=== PATIENT | female | born 1985 | race Caucasian/White ===

== ENCOUNTER 2017-12-10 08:07 | Emergency (ER) | payer BC ==
[2017-12-10] MEDS ORDERED: Lidocaine 1% 10 ML MDV INJECT ONE (08:28)
--- NOTE | 2017-12-10 08:43 | EDM.PDOC ---
ED HPI GENERAL MEDICAL PROBLEM - General Chief Complaint: ENT Problem Stated Complaint: MOUTH INJURY Time Seen by Provider: 12/10/17 08:20 Source of Information: Reports: Patient, Family (spouse) History Limitations: Reports: No Limitations - History of Present Illness INITIAL COMMENTS - FREE TEXT/NARRATIVE: 32-year-old female presents the ED with an acute injury to the corner of her right lip. She states she tripped over some clothing last evening tripped and fell at home and struck the corner of the night table. This resulted in a laceration of the corner of her mouth involving primarily the lower lip. She denies any dental pain or injury. She denies any neck or head pain. Wound has stopped bleeding. However reinspection of the wound this morning it appears that she needs suture repair. When her last tetanus toxoid was updated. Onset: Today Onset Date: 12/10/17 Onset Time: 12:00 Duration: Hour(s): Location: Reports: Face (Right lower corner of the lip.) Quality: Reports: Ache Severity: Mild Improves with: Reports: None Worsens with: Reports: Eating Context: Reports: Trauma (Blunt force trauma when she tripped and fell and hit the corner of the th last night.). 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: Neurological History: Reports: Seizure Psychiatric History: Reports: Anxiety, Depression, Panic Attack Dermatologic History: Reports: Eczema Social & Family History - Tobacco Use Smoking Status *Q: Current Every Day Smoker Years of Tobacco use: 20 Packs/Tins Daily: 0.5 - Caffeine Use Caffeine Use: Reports: Coffee, Energy Drinks, Tea - Alcohol Use Days Per Week of Alcohol Use: 1 Number of Drinks Per Day: 3 Total Drinks Per Week: 3 - Recreational Drug Use Recreational Drug Use: No - Living Situation & Occupation Living situation: Reports: Occupation: Employed Review of Systems - Review of Systems Review Of Systems: See Below Constitutional: Reports: No Symptoms Eyes: Reports: No Symptoms Ears: Reports: No Symptoms Nose: Reports: No Symptoms Mouth/Throat: Reports: No Symptoms Respiratory: Reports: No Symptoms Cardiovascular: Reports: No Symptoms GI/Abdominal: Reports: No Symptoms Genitourinary: Reports: No Symptoms Musculoskeletal: Reports: No Symptoms Skin: Reports: No Symptoms Neurological: Reports: No Symptoms Psychiatric: Reports: No Symptoms ED EXAM, GENERAL - Physical Exam Exam: See Below Exam Limited By: No Limitations General Appearance: Alert, WD/WN, No Apparent Distress Eye Exam: Bilateral Eye: Normal Inspection Nose: Normal Inspection, Normal Mucosa, No Blood Throat/Mouth: Other (Has a 1.5 cm stellate laceration involving the lower aspect of her right lip at the corner of her mouth.) Head: Atraumatic ( His minimal involvement on the in tear of the left.), Normocephalic Neck: Normal Inspection, Supple, Non-Tender, Full Range of Motion. No: Lymphadenopathy (L), Lymphadenopathy (R) Respiratory/Chest: No Respiratory Distress, Lungs Clear, Normal Breath Sounds, No Accessory Muscle Use Cardiovascular: Normal Peripheral Pulses, Regular Rate, Rhythm, No Edema, No Gallop ED TRAUMA PROCEDURES - Laceration/Wound Repair Right Lower Mouth Lac/Wound Length In cm: 2.5 (2 lacerations involving the lower aspect of her right lateral lip involving the Start border.) Appearance: Subcutaneous, Stellate, Clean Anesthetic Type: Local Local Anesthesia - Lidocaine (Xylocaine): 1% Plain Local Anesthetic Volume: 2cc Skin Prep: Saline Suture Size: other # of Sutures: 6 Repaired With: Vicryl (5-0) Course - Vital Signs Last Recorded V/S: Last Vital Signs Temp 36.7 C 12/10/17 08:14 Pulse 70 12/10/17 08:14 Resp 20 12/10/17 08:14 BP 105/69 12/10/17 08:14 Pulse Ox 98 12/10/17 08:14 - Orders/Labs/Meds Meds: Medications Discontinued Medications Generic Name Dose Route Start Last Admin Trade Name Haja PRN Reason Stop Dose Admin Lidocaine HCl 10 ml 12/10/17 08:28 12/10/17 08:50 Xylocaine 1% INJECT 12/10/17 08:29 10 ml ONETIME ONE Administration - Radiology Interpretation Free Text/Narrative:: 32-year-old female presents to the ED after a trip and fall at home early last night. She states she tripped over some clothing and struck the corner of the night table with her right lower lip. This is resulted in a 1.5 cm jagged laceration involving the vermilion border of her right lower lip at the corner of her mouth. Wound will be cleansed and then sutured under local anesthetic using 5-0 Vicryl suture. - Re-Assessments/Exams Free Text/Narrative Re-Assessment/Exam: 12/10/17 08:49 wound both inner and outer aspect of the Start border corner of right lower lip were sutured under local anesthetic. Total length of laceration appears to 0.5 cm. Lysed 5-0 Ethilon to close the wounds. She is followed on their own. No need for follow-up unless problems develop. Departure - Departure Time of Disposition: 08:49 Disposition: Home, Self-Care 01 Condition: Fair Clinical Impression: Laceration of lower lip Qualifiers: Encounter type: initial encounter Qualified Code(s): S01.511A - Laceration without foreign body of lip, initial encounter - Discharge Information *PRESCRIPTION DRUG MONITORING PROGRAM REVIEWED*: Not Applicable *COPY OF PRESCRIPTION DRUG MONITORING REPORT IN PATIENT SHANITA: Not Applicable Instructions: Mouth Laceration Referrals: Gabriela Doe, PUMP SERVICER [Primary Care Provider] - Forms: ED Department Discharge Additional Instructions: Evaluation the emergency room this morning in regards to blunt trauma to the right lower lip secondary to a fall at home. This resulted in a jagged 2.5 cm laceration to the Start border of your right lip both inner and outer. Both wounds were cleansed and then sutured under local anesthetic. 6 sutures are placed in total. These are by gross sutures and should dissolve on their own over the next 7-8 days. May eat and drink per normal. As soon as the sutures are loose the usually come out on there own over the next 5-7 days. Failing this they could be removed after 8 days.
== END 2017-12-10 09:02 | disposition home or self-care (01) ==
LOC: JD.ED 08:07
DX: S01.511A Laceration without foreign body of lip, initial encounter (principal); F17.210 Nicotine dependence, cigarettes, uncomplicated; W01.198A Fall on same level from slipping, tripping and stumbling with subsequent striking against other object, initial encounter; Y92.009 Unspecified place in unspecified non-institutional (private) residence as the place of occurrence of the external cause
CPT/HCPCS: 12011; 99283-25

== ENCOUNTER 2017-12-15 11:45 | Emergency (ER) | payer BC | END 2017-12-15 14:00 | disposition left against medical advice (07) | LOC: JD.ED 11:45 | DX: Z53.21 Procedure and treatment not carried out due to patient leaving prior to being seen by health care provider (principal) ==

== ENCOUNTER 2018-12-17 09:39 | Emergency (ER) | payer BC, OTHER ==
--- NOTE | 2018-12-17 09:58 | EDM.PDOC ---
ED HPI GENERAL MEDICAL PROBLEM - General Chief Complaint: General Stated Complaint: ANXIETY ATTACK, SEIZURE Time Seen by Provider: 12/17/18 09:57 - History of Present Illness INITIAL COMMENTS - FREE TEXT/NARRATIVE: 33-year-old female presents with worsening anxiety and a possible seizure. Patient is been under a lot of anxiety the last several weeks she had a mild anxiety attack about a week ago and was able to treat it with lorazepam at home. The patient currently takes Lexapro and is usually works pretty well for her however she's been under increasing amount of stress at work. Yesterday everything was going fine and she developed some anxiety and she noticed that she went limp she stayed awake for some of this and then woke up with her daughter hanging onto her. She was still shaking at that time but was awake. She did not have any loss of bowel or bladder control. The patient has a history of asthma and at times over the last little bit his felt short of breath during this episode. However, this was not asthma-like shortness of breath. Otherwise she has not had any chest pain abdominal pain burning or frequency with urination and doubts she is . She is on control. Patient occasionally drinks alcohol and occasionally uses marijuana. 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 Denies: Chest Pain GI/Abdominal: Reports: No Symptoms. Denies: Abdominal Pain : Reports: No Symptoms Musculoskeletal: Reports: No Symptoms Skin: Reports: No Symptoms Neurological: Reports: Seizure (History is not consistent with a normal seizure this is probably related to anxiety cannot exclude a pseudoseizure) Psychiatric: Reports: Anxiety ED EXAM, GENERAL - Physical Exam Exam: See Below Exam Limited By: No Limitations General Appearance: Alert, No Apparent Distress Head: Atraumatic, Normocephalic Neck: Normal Inspection, Supple, Non-Tender, Full Range of Motion Respiratory/Chest: No Respiratory Distress, Lungs Clear, Normal Breath Sounds Cardiovascular: Regular Rate, Rhythm, No Edema, No Murmur GI/Abdominal: Normal Bowel Sounds, Soft, Non-Tender Back Exam: Normal Inspection. No: CVA Tenderness (L), CVA Tenderness (R) Extremities: Normal Inspection, No Pedal Edema Neurological: Alert, Oriented, Normal Cognition Psychiatric: Anxious Lymphatic: No Adenopathy Course - Vital Signs Last Recorded V/S: Last Vital Signs Temp 37.6 C 12/17/18 09:56 Pulse 73 12/17/18 09:56 Resp 18 12/17/18 09:56 BP 152/99 H 12/17/18 09:56 Pulse Ox 100 12/17/18 09:56 - Orders/Labs/Meds Orders: Active Orders 24 hr Category Date Time Status Peripheral IV Care [RC] . DIRECTED Care 12/17/18 10:36 Active Sodium Chloride 0.9% [Saline Flush] Med 12/17/18 10:36 Active 10 ml FLUSH ASDIRECTED PRN Peripheral IV Insertion Adult [OM.PC] Routine Oth 12/17/18 10:36 Ordered Medication Orders Sodium Chloride (Saline Flush) 10 ml FLUSH ASDIRECTED PRN PRN Reason: Keep Vein Open Last Admin: 12/17/18 10:53 Dose: 10 ml Labs: Laboratory Tests 12/17/18 12/17/18 Range/Units 10:50 10:50 WBC 3.55 L (3.98-10.04) K/mm3 RBC 4.39 (3.98-5.22) M/mm3 Hgb 12.8 (11.2-15.7) gm/L Hct 39.0 (34.1-44.9) % MCV 88.8 (79.4-94.8) fl MCH 29.2 (25.6-32.2) pg MCHC 32.8 (32.2-35.5) g/dl RDW Std Deviation 40.2 (36.4-46.3) fL Plt Count 239 (182-369) K/mm3 MPV 9.8 (9.4-12.3) fl Neutrophils % (Manual) 60 (40-60) % Band Neutrophils % 0 (0-10) % Lymphocytes % (Manual) 36 (20-40) % Atypical Lymphs % 0 % Monocytes % (Manual) 3 (2-10) % Eosinophils % (Manual) 1 (0.7-5.8) % Basophils % (Manual) 0 L (0.1-1.2) Platelet Estimate Adequate RBC Morph Comment Normal Sodium 138 (136-145) mEq/L Potassium 4.2 (3.5-5.1) mEq/L Chloride 105 (98-107) mEq/L Carbon Dioxide 24 (21-32) mEq/L Anion Gap 13.2 (5-15) BUN 10 (7-18) mg/dL Creatinine 0.7 (0.55-1.02) mg/dL Est Cr Clr Drug Dosing 100.94 mL/min Estimated GFR (MDRD) > 60 (>60) mL/min BUN/Creatinine Ratio 14.3 (14-18) Glucose 80 (74-106) mg/dL Calcium 9.0 (8.5-10.1) mg/dL Total Bilirubin 0.3 (0.2-1.0) mg/dL AST 17 (15-37) U/L ALT 21 (14-59) U/L Alkaline Phosphatase 51 (46-116) U/L Total Protein 6.9 (6.4-8.2) g/dl Albumin 3.8 (3.4-5.0) g/dl Globulin 3.1 gm/dL Albumin/Globulin Ratio 1.2 (1-2) TSH 3rd Generation 0.979 (0.358-3.74) uIU/mL Meds: Medications Generic Name Dose Route Start Last Admin Trade Name Freq PRN Reason Stop Dose Admin Sodium Chloride 10 ml 12/17/18 10:36 12/17/18 10:53 Saline Flush FLUSH 10 ml ASDIRECTED PRN Administration Keep Vein Open Discontinued Medications Generic Name Dose Route Start Last Admin Trade Name Haja PRN Reason Stop Dose Admin Lorazepam 1 mg 12/17/18 10:34 12/17/18 10:44 Ativan IVPUSH 12/17/18 10:35 1 mg ONETIME ONE Administration - Re-Assessments/Exams Free Text/Narrative Re-Assessment/Exam: 12/17/18 10:59 We'll give her milligram of Ativan and see a she does check labs including a thyroid. Did discuss the possibility of maybe needing a CT but I think this is of low yield and the patient would like to hold off on this. 12/17/18 12:39 Patient doing much better after getting Ativan laboratory evaluation shows a normal TSH chemistries and CBC are essentially unremarkable. Will discharge with diagnosis of anxiety I cannot exclude pseudoseizure, however further evaluation for this may be warranted down the road I'm not sure what strength Ativan she has at home but I will give her prescription for Ativan 1 mg #9 one by mouth every 8 hours as needed. Departure - Departure Time of Disposition: 12:40 Disposition: Home, Self-Care 01 Clinical Impression: Anxiety - Discharge Information Prescriptions: LORazepam [Ativan] 1 mg PO Q8H PRN #9 tab PRN Reason: Anxiety Referrals: Nata Delcid DECORATING CONSULTANT [Primary Care Provider] - Forms: ED Department Discharge Additional Instructions: Return to the emergency room with any questions or problems or worsening symptoms. Use the Ativan as needed for anxiety allow 12 hours after using it however before driving or returning to work. Follow-up in the clinic on Friday or Friday. - My Orders Last 24 Hours: My Active Orders 12/17/18 10:36 Peripheral IV Care [RC] . DIRECTED Sodium Chloride 0.9% [Saline Flush] 10 ml FLUSH ASDIRECTED PRN Peripheral IV Insertion Adult [OM.PC] Routine - Assessment/Plan Last 24 Hours: My Active Orders 12/17/18 10:36 Peripheral IV Care [RC] . DIRECTED Sodium Chloride 0.9% [Saline Flush] 10 ml FLUSH ASDIRECTED PRN Peripheral IV Insertion Adult [OM.PC] Routine
[2018-12-17] MEDS ORDERED: LORazepam 2 MG/ML SDV IVPUSH ONE (10:34)
[2018-12-17] MEDS ORDERED: Sodium Chloride 0.9% 10 ML Syringe FLUSH PRN (10:36)
== END 2018-12-17 13:08 | disposition home or self-care (01) ==
LOC: JD.ED 09:39
DX: F41.9 Anxiety disorder, unspecified (principal); F32.9 Major depressive disorder, single episode, unspecified; Z88.8 Allergy status to other drugs, medicaments and biological substances; Z79.899 Other long term (current) drug therapy
CPT/HCPCS: 36415; 80053; 84443; 85007; 85027; 96374; 99283; J2060